=== PATIENT | male | born 1965 | race Caucasian/White ===

== ENCOUNTER → 2020-11-07 | Outpatient (CLI) | payer BC ==
--- NOTE | 2020-11-07 14:59 | CT ---
EXAMINATION TYPE: CT wrist LT wo con DATE OF EXAM: 11/07/2020 COMPARISON: None HISTORY: 55-year-old male M2 5.532 left wrist pain, no injury. Recent gout. TECHNIQUE: Contiguous axial scanning of the left wrist without IV contrast. Coronal and sagittal rec onstructions performed. 3-D reconstructions generated on a dedicated independent workstation. CT DLP: 151.2 mGycm Automated exposure control for dose reduction was used. FINDINGS: Moderate degenerative spurring and joint space narrowing at the first CMC joint. Punctate loose body noted. Some subchondral cystic change noted at the radiolunate joint and also proximal triquetrum. No acute fracture. Radiocarpal and distal radioulnar joint as well as the midcarpal compartment appea r intact. IMPRESSION: 1. MODERATE OSTEOARTHROSIS OF THE BASAL JOINT OF THE THUMB. 2. Very early degenerative changes noted at the radiolunate joint of the wrist. 3. No acute osseous abnormality seen.
== END | disposition home or self-care (01) ==
LOC: RADCTMAIN 14:09
PROVIDERS: ATTEND Nurse Practitioner Adult Health
DX: M19.032 Primary osteoarthritis, left wrist (principal)

== ENCOUNTER → 2020-12-01 | Outpatient (CLI) | payer BC ==
--- NOTE | 2020-12-01 18:00 | ECHOF ---
Referral Reason: MEASUREMENTS -------- HEIGHT: 195.6 cm WEIGHT: 167.8 kg BP: IVSd: 1.7 cm (0.6 - 1.1) LVIDd: 3.3 cm (3.9 - 5.3) LVPWd: 1.6 cm (0.6 - 1.1) EDV(Teich): 45 ml IVSs: 1.1 cm LVIDs: 2.3 cm LVPWs: 1.0 cm %IVS Thck: -35 % ESV(Teich): 17 ml EF(Teich): 62 % %FS: 32 % SV(Teich): 28 ml RVIDd: 4.1 cm (< 3.3) LALs A4C: 4.2 cm LAAs A4C: 13.0 cm LAESV A-L A4C: 34 ml LAESV MOD A4C: 32 ml Ao Diam: 3.1 cm (2.0 - 3.7) AV Cusp: 2.2 cm (1.5 - 2.6) MV E Aaron: 0.73 m/s MV DecT: 199 ms MV Dec Carver: 3.7 m/s MV A Aaron: 1.14 m/s MV E/A Ratio: 0.64 MV PHT: 58 ms LVOT Vmax: 1.08 m/s LVOT maxP.67 mmHg AV Vmax: 1.12 m/s AV maxP.02 mmHg FINDINGS -------- Sinus rhythm. This was a technically difficult study with suboptimal views. The left ventricular size is normal. There is moderate concentric left ventricular hypertrophy. O verall left ventricular systolic function is normal with, an EF between 55 - 60 %. The RV was not well visualized. The left atrium was not well visualized. The right atrium was not well visualized. 5.0mg of Lumason was utilized for enhancement of images Interatrial and interventricular septum intact. The aortic valve was not well visualized. There is no evidence of aortic regurgitation. There is no evidence of aortic stenosis. The mitral valve was not well visualized. No mitral regurgitation. The tricuspid valve was not well visualized. No regurgitation noted Unable to estimate RVSP due t o inadequate TR jet spectral doppler profile. The pulmonic valve was not well visualized. The aortic root size is normal. IVC Not well visulized. There is no pericardial effusion. CONCLUSIONS -------- 1. The left ventricular size is normal. 2. There is moderate concentric left ventricular hypertrophy. 3. Overall left ventricular systolic function is normal with, an EF between 55 - 60 %. CMA OR LPN: Gin Kidd [facility]
== END | disposition home or self-care (01) ==
LOC: RADECHMAIN 13:36
PROVIDERS: ATTEND Family Medicine
DX: I10 Essential (primary) hypertension (principal)
CPT/HCPCS: 93306

== ENCOUNTER → 2020-12-13 | Outpatient (CLI) | payer BC ==
[2020-12-13 19:17] LABS: Basophils # (A) 0.03 X 10*3/uL (0.00-0.10); Basophils % (A) 0.6 %; Eosinophils # (A) 0.13 X 10*3/uL (0.04-0.35); Eosinophils % (A) 2.5 %; HGB 15.4 g/dL (13.0-17.0); Lymphocytes # (A) 1.35 X 10*3/uL (0.90-5.00); Lymphocytes % (A) 25.6 %; MCH 29.8 pg (27.0-32.0); MCHC 33.5 g/dL (32.0-37.0); Mean Platelet Volume 10.2 fL (9.5-12.2); Monocytes # (A) 0.51 X 10*3/uL (0.20-1.00); Monocytes % (A) 9.7 %; Neutrophils # (A) 3.24 X 10*3/uL (1.80-7.70); Neutrophils % (A) 61.2 %; Platelet Count 213 X 10*3/uL (140-440); RBC 5.17 X 10*6/uL (4.40-5.60); RDW 12.9 % (11.5-14.5); WBC 5.28 X 10*3/uL (4.50-10.00)
[2020-12-13 21:13] LABS: Cyclic Citrull Pep IgG Unit <0.5 U/mL; Cyclic Citrullinated Pep IgG NEGATIVE (NEGATIVE)
[2020-12-13 21:38] LABS: Erythrocyte Sedimentation Rate 30 mm/Hr (0-20)
[2020-12-14 15:54] LABS: African American GFR (CKD) 109.5 (60.0-200.0); Anion Gap 15.9 mmol/L (4.00-12.00); BUN/Creat Ratio 16.67 Ratio (12.00-20.00); C Reactive Protein 0.5 mg/dL (0.0-0.8); Calcium 9.5 mg/dL (8.7-10.3); Carbon Dioxide 23.1 mmol/L (21.6-31.8); Non-African American GFR(CKD) 94.5 (60.0-200.0); Uric Acid 8.7 mg/dL (3.7-8.7)
[2020-12-14 16:03] LABS: T4, Free (Free Thyroxine) 1.4 ng/dL (0.80-1.80)
[2020-12-14 16:34] LABS: HLA B27 POSITIVE
[2020-12-14 17:29] LABS: Vitamin D, 1, 25-Dihydroxy 34 pg/mL (20 - 79)
[2020-12-15 07:05] LABS: Angiotensin-1 Converting Enz. 41 U/L (8-52)
== END | disposition home or self-care (01) ==
LOC: LABWHC1 12:23
PROVIDERS: ATTEND Orthopaedic Surgery
DX: M19.032 Primary osteoarthritis, left wrist (principal); M10.032 Idiopathic gout, left wrist
CPT/HCPCS: 36415; 80048; 82164; 82306; 82550; 82652; 83520; 84439; 84443; 84450; 84460; 84550; 85025; 85652; 86038; 86140; 86200; 86431; 86812

== ENCOUNTER → 2023-04-16 | Outpatient (CLI) | payer BC ==
--- NOTE | 2023-04-16 15:48 | US ---
EXAMINATION TYPE: US carotid duplex BILAT DATE OF EXAM: 04/16/2023 COMPARISON: NONE CLINICAL INDICATION: Male, 57 years old with history of I51.7 CARDIOMEGALY; Stenosis TECHNIQUE: Carotid duplex ultrasound examination. Indirect Doppler criteria was utilized. FINDINGS: EXAM MEASUREMENTS: RIGHT: Peak Systolic Velocity (PSV) cm/sec ----- Right CCA: 85.6 ----- Right ICA: 97.3 ----- Right ECA: 147 ICA/CCA ratio: 1.1 RIGHT: End Diastole cm/sec ----- Right CCA: 17.7 ----- Right ICA: 28.0 ----- Right ECA: 29.1 LEFT: Peak Systolic Velocity (PSV) cm/sec ----- Left CCA: 125 ----- Left ICA: 129 ----- Left ECA: 115 ICA/CCA ratio: 1.0 LEFT: End Diastole cm/sec ----- Left CCA: 26.8 ----- Left ICA: 29.2 ----- Left ECA: 23.1 VERTEBRALS (direction of flow): Right Vertebral: Antegrade Left Vertebral: Antegrade Rhythm: Normal [employer] NOTES: No significant stenosis seen, difficult visualization due to large pt body habitus IMPRESSION: * 50-69% stenosis of the left carotid bifurcation. * Less than 50% stenosis of the right carotid bifurcation. Criteria for Assigning % of Stenosis / Diameter reduction (Estimation based on the indirect measurements of the internal carotid artery velocities (ICA PSV). 1. Normal (no stenosis)=ICA PSV < 125 cm/s: ratio < 2.0: ICA EDV<40 cm/s. 2. Less than 50% stenosis=ICA PSV < 125 cm/s: ratio < 2.0: ICA EDV<40 cm/s. 3. 50 to 69% stenosis=ICA PSV of 125 to 230 cm/s: ration 2.0 ? 4.0: ICA EDV 40-100 cm/s. 4. Greater than 70% stenosis to near occlusion= ICA PSV > 230 cm/s: ratio > 4.0: ICA EDV > 100 cm/s. 5. Near occlusion= ICA PSV velocities may be low or undetectable: variable ratio and ICA EDV. 6. Total occlusion=unable to detect flow.
--- NOTE | 2023-04-17 10:17 | CA ---
Transthoracic Echo Report Name: Ghassan Altamirano Age: 57 Gender: M : 1965 Exam Date: 04/16/2023 15:20 Exam Location: [place] [facility] Ht (in): 78 Wt (lb): 345 Ordering Physician: Clifford Stevenson MD Attending/Referring Phys: Kristine Ken [facility] [place] Setter Gin Kidd RDCS Procedure CPT: Indications: I57.7 Cardiac Hx: Technical Quality: Very technically difficult study Contrast 1: Definity Total Dose (mL): 2 Contrast 2: Total Dose (mL): MEASUREMENTS (Male / Female) Normal Values 2D ECHO LV Diastolic Diameter PLAX 3.4 cm 4.2 - 5.9 / 3.9 - 5.3 cm LV Systolic Diameter PLAX 2.4 cm IVS Diastolic Thickness 1.3 cm 0.6 - 1.0 / 0.6 - 0.9 cm LVPW Diastolic Thickness 1.3 cm 0.6 - 1.0 / 0.6 - 0.9 cm LV Relative Wall Thickness 0.8 LA Volume 81.9 cm??? 18 - 58 / 22 - 52 cm??? LA Volume Index 27.4 cm???/m??? 16 - 28 cm???/m??? DOPPLER AV Peak Velocity 106.7 cm/s AV Peak Gradient 4.6 mmHg AV Mean Velocity 87.1 cm/s AV Mean Gradient 3.2 mmHg AV Velocity Time Integral 21.2 cm LVOT Peak Velocity 105.7 cm/s LVOT Peak Gradient 4.5 mmHg LVOT Velocity Time Integral 23.0 cm MV Area PHT 3.0 cm??? Mitral E Point Velocity 61.7 cm/s Mitral A Point Velocity 69.1 cm/s Mitral E to A Ratio 0.9 MV Deceleration Time 256.5 ms MV E' Velocity 9.5 cm/s Mitral E to MV E' Ratio 6.5 FINDINGS Left Ventricle Mildly increased left ventricular wall thickness. Normal left ventricular systolic function with no obvious regional wall motion abnormalities. Left ventricular ejection fraction is estimated at 50 %. Right Ventricle Right ventricle not well visualized. Right Atrium Right atrium not well visualized. Left Atrium Severely increased left atrial volume. Mildly increased left atrial area. Mitral Valve Mitral valve not well visualized. Mild mitral annular calcification. Mild mitral regurgitation. Aortic Valve No aortic stenosis. No aortic regurgitation. Tricuspid Valve Structurally normal tricuspid valve. Mild tricuspid regurgitation. Pulmonic Valve Pulmonic valve not well visualized. Pericardium No pericardial effusion. Aorta Normal size aortic root and proximal ascending aorta. CONCLUSIONS LVH with ejection fraction of 50-55% Previewed by: Dr. Sidney Sweet MD (Electronically Signed) Final Date: 17 April 2023 10:16
== END | disposition home or self-care (01) ==
LOC: RADUSWWP 14:31
PROVIDERS: ATTEND Family Medicine
DX: I51.7 Cardiomegaly (principal); I65.23 Occlusion and stenosis of bilateral carotid arteries
CPT/HCPCS: 93306; 93880; Q9957